=== PATIENT | male | born 1985 | race Caucasian/White ===

== ENCOUNTER 2024-11-22 13:02 | Emergency (ER) | payer MEDICAID ==
[~2024-11-22] VITALS: Ht 170.2 cm; Wt 68.0 kg
[2024-11-22 13:06] VITALS: O2SAT 99
[2024-11-22] MEDS: SODIUM CHLORIDE 0.9% 1,000 ML IV ONE (13:42)
[2024-11-22] MEDS: ACETAMINOPHEN 325MG TABLET PO ONE (13:43)
[2024-11-22] MEDS: METOCLOPRAMIDE HCL 10MG/2ML VIAL IV ONE (13:43)
[2024-11-22] MEDS: KETOROLAC 15MG/ML VIAL IV ONE (13:43)
[2024-11-22] MEDS: DIPHENHYDRAMINE 50MG/ML VIAL IV ONE (13:43)
[2024-11-22 14:13] LABS: BASOPHILS % 0.6 % (0.0-2.0); DIFFERENTIAL COMMENT 0; EOSINOPHILS % 1.7 % (0.0-5.0); HEMATOCRIT. 35.6 % (42.0-52.0); HEMOGLOBIN. 12.3 g/dL (14.0-18.0); MEAN CORPUSCULAR HEMOGLOBIN 37.6 pg (28.0-32.0); MEAN CORPUSCULAR HGB CONC 34.7 g/dL (31.0-37.0); MEAN CORPUSCULAR VOLUME 108.3 fL (80.0-94.0); MEAN PLATELET VOLUME 9.5 fl (7.4-10.4); MONOCYTES % 10.1 % (2.0-8.0); NEUTROPHILS % 67.6 % (40.0-76.0); PLATELET 96 x1000/uL (130-400); RED BLOOD CELL COUNT 3.29 mill/uL (4.7-6.1); RED CELL DISTRIBUTION WIDTH 15.3 % (11.6-14.6); WHITE BLOOD COUNT 4.5 x1000/uL (4.5-11.0)
[2024-11-22 14:19] LABS: CHLORIDE 104 mEq/L (98-107); POTASSIUM 3.3 mEq/L (3.5-5.1); SODIUM 142 mEq/L (136-145)
[2024-11-22 14:20] LABS: CARBON DIOXIDE 30 mEq/L (21-32)
[2024-11-22 14:25] LABS: CREATININE 0.8 mg/dL (0.6-1.3); GLUCOSE 94 mg/dL (70-105); UREA NITROGEN BLOOD 7 mg/dL (9-23)
[2024-11-22 15:47] VITALS: BP 118/70; PULSE 98; RESP 16; TEMP 36.7; O2SAT 99
== END 2024-11-22 15:43 | disposition home or self-care (01) ==
LOC: ER 13:02
DX: G43.809 Other migraine, not intractable, without status migrainosus (principal); Z88.0 Allergy status to penicillin; Z79.899 Other long term (current) drug therapy
CPT/HCPCS: 99285; 96374; 70450; 96375; 96361; 80048; 85025; 36415; J1885; J1200; J2765; J7030